=== PATIENT | female | born 1960 | race Caucasian/White ===

== ENCOUNTER 2019-11-13 18:59 | Emergency (ER) | payer OTHER, SELFPAY ==
[~2019-11-13] VITALS: Ht 154.9 cm; Wt 62.6 kg
[2019-11-13 19:19] VITALS: BP 113/74
--- NOTE | 2019-11-13 19:22 | NUR ---
PT TAKEN TO TENT
--- NOTE | 2019-11-13 19:25 | NUR ---
Dr. Simon examining patient.
--- NOTE | 2019-11-13 19:27 | NUR ---
Patient discharged by Dr Simon. Written and verbal after care instructions about COVID 19 care instructions given and explained. Patient alert, oriented and verbalized understanding of instructions. Ambulatory with steady gait. All questions addressed prior to discharge. ID band removed. Patient advised to follow up with PMD. Rx of azithromycin, hydroxychloroquine, zinc sulfate given. Patient educated on indication of medication including possible reaction and side effects. Opportunity to ask questions provided and answered.
[2019-11-13 19:29] VITALS: BP 113/74
== END 2019-11-13 19:27 | disposition home or self-care (01) ==
LOC: MED 18:59 → EEVIPCON 18:59 → MED 19:27
DX: R06.02 Shortness of breath (principal); Z20.828 Contact with and (suspected) exposure to other viral communicable diseases
CPT/HCPCS: 99283

== ENCOUNTER 2019-11-16 13:12 | Emergency (ER) | payer OTHER, SELFPAY ==
[~2019-11-16] VITALS: Ht 154.9 cm; Wt 65.8 kg
[2019-11-16 13:20] VITALS: BP 123/93
--- NOTE | 2019-11-16 13:24 | NUR ---
pt refused to be in room one ; per pt would wait in lobby no respiratory distress ; eupnic
--- NOTE | 2019-11-16 14:29 | NUR ---
PA-ER TELLO AND CHARGE NURSE AWARE/NOTIFIED.
== END 2019-11-16 14:29 | disposition left against medical advice (07) ==
LOC: MED 13:12
DX: R06.02 Shortness of breath (principal); R06.00 Dyspnea, unspecified; Z53.21 Procedure and treatment not carried out due to patient leaving prior to being seen by health care provider